=== PATIENT | female | born 1950 | race Caucasian/White ===

== ENCOUNTER 2023-10-08 12:51 | Emergency (ER) | payer MEDICARE ==
[~2023-10-08] VITALS: Ht 165.1 cm; Wt 57.2 kg
[2023-10-08 13:29] VITALS: TEMP 98.8
[2023-10-08 16:02] VITALS: PULSE 77; RESP 14; O2SAT 100
[2023-10-08] MEDS ORDERED: ULTRAM 50MG50 MG PO (17:05)
== END 2023-10-08 17:17 | disposition home or self-care (01) ==
LOC: ER 15:14
DX: S02.2XXA Fracture of nasal bones, initial encounter for closed fracture (principal); S16.1XXA Strain of muscle, fascia and tendon at neck level, initial encounter; S70.02XA Contusion of left hip, initial encounter; S70.01XA Contusion of right hip, initial encounter; W18.39XA Other fall on same level, initial encounter; Y93.01 Activity, walking, marching and hiking; Y92.89 Other specified places as the place of occurrence of the external cause; I10 Essential (primary) hypertension; E11.9 Type 2 diabetes mellitus without complications
CPT/HCPCS: 70450; 70486; 72125; 72192; 99284